=== PATIENT | male | born 1985 | race Caucasian/White ===

== ENCOUNTER 2016-09-24 17:47 | Emergency (ER) | payer OTHER ==
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
[~2016-09-24 17:47] MED LIST: ALPRAZOLAM ODT1 MG; CELEXA; LORTAB 5/500 TA1 TA1 PO
== END 2016-09-24 20:16 | disposition home or self-care (01) ==
LOC: SED 17:47
DX: S81.002A Unspecified open wound, left knee, initial encounter (principal); F17.210 Nicotine dependence, cigarettes, uncomplicated; Z23 Encounter for immunization; X95.01XA Assault by airgun discharge, initial encounter; Y92.9 Unspecified place or not applicable
CPT/HCPCS: 29530; 73560; 90471; 90715; 96372; 99283; J1885